=== PATIENT | female | born 1995 | race Caucasian/White ===

== ENCOUNTER 2018-07-06 22:00 | Inpatient (IN) | payer BC, OTHER ==
[2018-07-07] MEDS: DEXTROSE 5%-LACTATED RINGERS 1,000 ML IV SCH ×3 (00:30→23:50)
[2018-07-07 01:23] LABS: BASO % 0.2 % (0-2.0); EOS % 1.1 % (0-4.5); HEMATOCRIT 32.7 % (32.4-45.2); HEMOGLOBIN 10.9 GM/dL (10.7-15.3); LYMPH % 19.3 % (8-40); MCH 27.6 pg (25.7-33.7); MCHC 33.3 g/dl (32.0-36.0); MEAN CELL VOLUME 82.9 fl (80-96); MEAN PLT VOLUME 7.7 fl (7.5-11.1); MONO % 7.8 % (3.8-10.2); NEUT % 71.6 % (42.8-82.8); PLATELET COUNT 257 K/MM3 (134-434); RBC 3.94 M/mm3 (3.60-5.2); RDW 14.5 % (11.6-15.6)
[2018-07-07 01:44] LABS: INR 0.91 (0.83-1.09); PROTHROMBIN TIME (PATIENT) 10.7 SEC (9.7-13.0)
[2018-07-07 01:47] LABS: ACTIVATED PTT 24.8 SECONDS (25.2-36.5)
[2018-07-07 01:58] LABS: ANION GAP 10 MMOL/L (8-16); BLOOD UREA NITROGEN 10 mg/dL (7-18); CALCIUM 8.7 mg/dL (8.5-10.1); CHLORIDE 106 mmol/L (98-107); CO2 20 mmol/L (21-32); CREATININE 0.6 mg/dL (0.55-1.3); GLUCOSE,RANDOM 81 mg/dL (74-106); POTASSIUM 4.1 mmol/L (3.5-5.1); SODIUM 137 mmol/L (136-145)
[2018-07-07] MEDS ORDERED: AMPICILLIN - 2 GM in SODIUM CHLORIDE 100 ML IVPB ONE (02:00)
[2018-07-07] MEDS ORDERED: AMPICILLIN SODIUM 2 GM VIAL ONE (02:06)
[2018-07-07 02:17] LABS: PLATELET ESTIMATE ADEQUATE
[2018-07-07 02:46] VITALS: BMI 34.9
[2018-07-07] MEDS: AMPICILLIN - 1 GM in SODIUM CHLORIDE 100 ML IVPB SCH ×5 (06:00→21:42)
[2018-07-07] MEDS ORDERED: AMPICILLIN SODIUM 1 GM VIAL ONE ×2 (06:00→17:33)
--- NOTE | 2018-07-07 07:19 | HP ---
Past Medical History - Primary Care Physician PCP:: Desmond Omer - Admission Chief Complaint: 36 weeks, prom, high leak History of Present Illness: 22 yo f g 1 p0 edc 08/01/18, by sono 35 by date c/o of gush of water from vagina at 8 pm last night, no pain, no fever , no vaginal bleeding , seen in L& D on 06/16/18 for the same c/o , sono henry was 14 cm, speculum exam vagina dry, nitrazine equivocal.,cx closed ,long vx -3, fhr cat 1, no contraction History Source: Patient Limitations to Obtaining History: No Limitations - Past Medical History ...: 1 ...Para: 0 ...Term: 0 ...: 0 ...Spon : 0 ...Induced : 0 ...Multiple Gestation: 0 ...LMP: 10/21/17 ... Weeks Gestation by Dates: 36.6 ...EDC by Dates: 07/28/18 ...EDC by Sono: 08/03/18 Heme/Onc: Yes: Anemia - Past Surgical History Hx Myomectomy: No Hx Transabdominal Cerclage: No - Smoking History Smoking history: Never smoked Have you smoked in the past 12 months: No Aproximately how many cigarettes per day: 0 - Alcohol/Substance Use Hx Alcohol Use: No - Social History Usual Living Arrangement: Yes: With Spouse History of Recent Travel: No Home Medications - Allergies Allergies/Adverse Reactions: Allergies Allergy/AdvReac Type Severity Reaction Status Date / Time No Known Allergies Allergy Verified 07/06/18 22:49 - Home Medications Home Medications: Ambulatory Orders Pnv No.95/Ferrous Fum/Folic AC [ Vitamin Tablet] 1 each PO DAILY Review of Systems - Review of Systems Constitutional: reports: No Symptoms Eyes: reports: No Symptoms HENT: reports: No Symptoms Neck: reports: No Symptoms Cardiovascular: reports: No Symptoms Respiratory: reports: No Symptoms Gastrointestinal: reports: No Symptoms Genitourinary: reports: No Symptoms Breasts: reports: No Symptoms Reported Musculoskeletal: reports: No Symptoms Integumentary: reports: No Symptoms Neurological: reports: No Symptoms Endocrine: reports: No Symptoms Hematology/Lymphatic: reports: No Symptoms Psychiatric: reports: No Symptoms Physical Exam - Maternity Vital Signs: Vital Signs Temperature 98.1 F 07/07/18 06:00 Pulse Rate 83 07/07/18 06:00 Respiratory Rate 20 07/07/18 06:00 Blood Pressure 122/63 07/07/18 06:00 O2 Sat by Pulse Oximetry (%) Constitutional: Yes: Well Nourished, No Distress, Calm Eyes: Yes: WNL, Conjunctiva Clear, EOM Intact HENT: Yes: WNL, Atraumatic, Normocephalic Neck: Yes: WNL, Supple, Trachea Midline Cardiovascular: Yes: WNL, Regular Rate and Rhythm Breast(s): Yes: WNL - Abdominal Exam/OB Fundal Height: 36 Number of Fetuses: Single Presentation: Vertex Contractions: No Regularity: Irritability Intensity: Unaware Monitor Mode: External Heart Rate Location: [facility] Category: I Accelerations: Uniform Decelerations: None - Vaginal Exam/OB Vaginal Bleediing: No Speculum Exam: Yes Dilatation (cm): closed Effacement (%): 0 Nitrazine Test: Negative Amniotic Fluid: Yes: Clear Presentation: Vertex/Position Station: -3 - Physical Exam Extremities: Yes: WNL Edema: LLE: Trace, RLE: Trace Deep Tendon Reflex Grade: Normal +2 ...Motor Strength: WNL Psychiatric: Yes: WNL - Labs Lab Results: CBC, BMP 07/07/18 01:00 07/07/18 01:00 Hemorrhage Risk Assessment - Risk Factors Medium Risk Factors: Yes: None High Risk Factors: Yes: None Risk Score: 1 Risk Level: Medium Risk Problem List - Problems (1) with 36 completed weeks gestation Code(s): Z3A.36 - 36 WEEKS GESTATION OF (2) Premature rupture of membranes Code(s): O42.90 - LAUREANO ROM, 7TH0 BETW RUPT & ONST LABR, UNSP WEEKS OF GEST Qualifiers: PROM gestational age: -third trimester Assessment/Plan 36 weeks gestation c/o amniotic fluid leak, nitrazine equivocal . sono henry 7.5 cm, not in labor , advsied repeat sono by MFM check for HENRY, , revaluate and check vagina for more lekage , iv Amp . prophylaxes, induction vs expectant management discussed, agreed to wait for repeat sono
[2018-07-07] MEDS ORDERED: TUBERCULIN PPD 5 TU/0.1ML SYRINGE (IN PATIENT USE ONLY) ID ONE (10:00)
--- NOTE | 2018-07-07 16:45 | PN ---
Progress Note (short form) - Note Progress Note: has no more gross leakage , no pain, no vaginal bleeding, FHR cat 1, no regular contraction Last Vital Signs Temp Pulse Resp BP Pulse Ox 98.6 F 78 18 115/62 07/07/18 16:00 07/07/18 16:00 07/07/18 16:00 07/07/18 16:00 abdomen soft, non tender, no cva uterus non tender, no contraction felt repeat nitrazine negative . repeat sono by MFM , normal HENRY 12.6 cm, BPP 8/8 fhr cat 1, impression 36 weeks, prom, high leak, not labor .adequate fluid with repeat sono . management expectant management discussed with patient induction discussed with patient , agreed to be observe . if fever or cont to groosly leak will deliver Problem List - Problems (1) with 36 completed weeks gestation Code(s): Z3A.36 - 36 WEEKS GESTATION OF (2) Premature rupture of membranes Code(s): O42.90 - LAUREANO ROM, 7TH0 BETW RUPT & ONST LABR, UNSP WEEKS OF GEST Qualifiers: PROM gestational age: -third trimester
[2018-07-07] MEDS ORDERED: SODIUM CHLORIDE 100 ML IVPB ONE (17:33)
[2018-07-08] MEDS ORDERED: AMPICILLIN SODIUM 1 GM VIAL ONE ×2 (01:29→05:32)
[2018-07-08] MEDS ORDERED: SODIUM CHLORIDE 100 ML IVPB ONE ×2 (01:29→05:32)
[2018-07-08] MEDS: AMPICILLIN - 1 GM in SODIUM CHLORIDE 100 ML IVPB SCH (01:36)
[2018-07-08] MEDS: DEXTROSE 5%-LACTATED RINGERS 1,000 ML IV SCH ×3 (01:36→17:45)
--- NOTE | 2018-07-08 16:47 | PN ---
Progress Note (short form) - Note Progress Note: 36 weeks, prom, high leak . has no more leakage . good fm , no fever or chills CBC, BMP 07/07/18 01:00 07/07/18 01:00 Last Vital Signs Temp Pulse Resp BP Pulse Ox 98.3 F 81 20 110/58 L 07/08/18 14:00 07/08/18 14:00 07/08/18 14:00 07/08/18 14:00 abdomen soft , no distension, no cva uterus non tender , no contraction felt no calf tenderness NST cat.1 heart tracing , no contraction plan cbc in am. cont. heart monitoring repeat sono on tuesday for HENRY , if no oligo will d/c home in am . Problem List - Problems (1) with 36 completed weeks gestation Code(s): Z3A.36 - 36 WEEKS GESTATION OF (2) Premature rupture of membranes Code(s): O42.90 - LAUREANO ROM, 7TH0 BETW RUPT & ONST LABR, UNSP WEEKS OF GEST Qualifiers: PROM gestational age: -third trimester
[2018-07-08] MEDS ORDERED: ONDANSETRON 4 MG/2 ML VIAL ONE (18:14)
[2018-07-08] MEDS ORDERED: ONDANSETRON 4 MG/2 ML VIAL IVPUSH ONE (18:45)
--- NOTE | 2018-07-09 11:22 | PN ---
Progress Note (short form) - Note Progress Note: hd 3 , 36 weeks, PROM transferred to L&D last night, was having contraction, felt nauseous. feels better no fever , no leakage or bleeding , having irregular contraction Last Vital Signs Temp Pulse Resp BP Pulse Ox 98.6 F 74 18 129/62 07/09/18 09:00 07/09/18 09:00 07/09/18 09:00 07/09/18 09:00 abdomen soft, no cva, uterus soft, non tender , fh present fhm cat 1 tracing with irregular contraction plan repeat cbc in am repeat BPP, HENRY in am, with MFM if normal HENRY will d/c home CBC, BMP 07/07/18 01:00 07/07/18 01:00 Problem List - Problems (1) with 36 completed weeks gestation Code(s): Z3A.36 - 36 WEEKS GESTATION OF (2) Premature rupture of membranes Code(s): O42.90 - LAUREANO ROM, 7TH0 BETW RUPT & ONST LABR, UNSP WEEKS OF GEST Qualifiers: PROM gestational age: -third trimester
[2018-07-09] MEDS: DEXTROSE 5%-LACTATED RINGERS 1,000 ML IV SCH ×2 (13:07)
[2018-07-10 06:28] VITALS: TEMP 98
[2018-07-10 08:01] VITALS: BP 122/72; PULSE 72
[2018-07-10 08:24] LABS: BASO % 0.2 % (0-2.0); EOS % 1.6 % (0-4.5); HEMATOCRIT 30.6 % (32.4-45.2); LYMPH % 20.9 % (8-40); MCH 27.2 pg (25.7-33.7); MCHC 32.8 g/dl (32.0-36.0); MEAN PLT VOLUME 7.4 fl (7.5-11.1); MONO % 9.8 % (3.8-10.2); NEUT % 67.5 % (42.8-82.8); PLATELET COUNT 195 K/MM3 (134-434); RBC 3.69 M/mm3 (3.60-5.2); RDW 14.9 % (11.6-15.6); WHITE BLOOD COUNT 7.4 K/mm3 (4.0-10.0)
[2018-07-10 10:48] LABS: ACANTHOCYTES 0; ANISOCYTOSIS 0; HELMET CELLS 0; HOWELL-JOLLY BODIES 0; MACROCYTOSIS 0; OVALOCYTE 0; PLATELET ESTIMATE NORMAL; ROULEAU 0; SICKELED CELLS 0; TARGET CELLS 0; TEAR DROP CELLS 0; TOXIC GRANULATION 0
--- NOTE | 2018-07-11 12:53 | DS ---
Physical Exam-CONVERTING TECHNICIAN Vital Signs: Vital Signs Temperature 98.0 F 07/10/18 07:59 Pulse Rate 72 07/10/18 07:59 Respiratory Rate 18 07/10/18 07:59 Blood Pressure 122/72 07/10/18 07:59 O2 Sat by Pulse Oximetry (%) Constitutional: Yes: Well Nourished, No Distress, Calm Eyes: Yes: WNL, Conjunctiva Clear, EOM Intact HENT: Yes: WNL, Atraumatic, Normocephalic Neck: Yes: WNL, Supple, Trachea Midline Cardiovascular: Yes: WNL, Regular Rate and Rhythm Respiratory: Yes: WNL, Regular, CTA Bilaterally Gastrointestinal: Yes: WNL ...Rectal Exam: Yes: WNL Renal/: Yes: WNL Vaginal Exam: Yes: Normal, Other (no fluid seen ,nitrazine negative) Cervix: Yes: Normal Uterus: Yes: Enlarged (36 weeks) ....Post : Yes: Uterus non-tender (closed, no leakage) Breast(s): Yes: WNL Musculoskeletal: Yes: WNL Extremities: Yes: WNL Integumentary: Yes: WNL Neurological: Yes: WNL, Alert, Oriented ...Motor Strength: WNL Psychiatric: Yes: WNL, Alert, Oriented Labs: CBC, BMP 07/10/18 07:40 07/07/18 01:00 Delivery - Delivery Vaginal Delivery: No Problems (not delivered) Delivery, Single - [place] Feeding Plan Initial Plan: Exclusive throughout hospitalization Discharge Summary Reason For Visit: LABOR ADMIT 36 weeks,PROM, high leak. repeat sono showe normal HENRY Condition: Good - Instructions Diet, Activity, Other Instructions: regular diet, if pain, contraction, fever,,, decrease movement, call MD follow up office in am Referrals: Desmond Omer MD [Staff Physician] - Disposition: HOME - Home Medications Comprehensive Discharge Medication List: Ambulatory Orders Pnv No.95/Ferrous Fum/Folic AC [ Vitamin Tablet] 1 each PO DAILY
== END 2018-07-10 10:25 | disposition home or self-care (01) | DRG 833 ==
LOC: JDEL 22:00 → JLDR 23:50 → J3W 07-07 16:46 → JLDR 07-08 19:47
PROVIDERS: ADMIT Obstetrics & Gynecology; ATTEND Obstetrics & Gynecology
DX: O42.913 Preterm premature rupture of membranes, unspecified as to length of time between rupture and onset of labor, third trimester (principal); Z3A.36 36 weeks gestation of pregnancy
CPT/HCPCS: 36415; 76801-TC; 80048; 85025; 85610; 85730; 86593; 86850; 86900; 86901; 87389

== ENCOUNTER 2021-06-10 16:20 | Emergency (ER) | payer BC, OTHER ==
[2021-06-10 16:29] VITALS: BP 112/75; PULSE 70; TEMP 98.1; BMI 31.1
[2021-06-10] MEDS ORDERED: KETOROLAC TROMETHAMINE 30 MG/1 ML VIAL IM ONE (16:53)
[2021-06-10] MEDS ORDERED: LIDOCAINE 5% TOPICAL PATCH TP ONE (16:54)
[2021-06-10] MEDS ORDERED: LIDOCAINE 5% TOPICAL PATCH ONE (17:20)
[2021-06-10] MEDS ORDERED: KETOROLAC TROMETHAMINE 30 MG/1 ML VIAL ONE (17:20)
[2021-06-10] MEDS ORDERED: LIDOCAINE PATCH REMOVAL MC ONE (22:00)
== END 2021-06-10 17:26 | disposition home or self-care (01) ==
LOC: JERFT 16:20
PROC: 3E0233Z Introduction of Anti-inflammatory into Muscle, Percutaneous Approach (ICD-10-PCS; principal; 2021-06-10)
DX: M54.5 Low back pain (principal); V49.40XA Driver injured in collision with unspecified motor vehicles in traffic accident, initial encounter
CPT/HCPCS: 99284-25